=== PATIENT | female | born 1995 | race Caucasian/White ===

== ENCOUNTER 2018-07-25 07:11 | Emergency (ER) | payer OTHER ==
[~2018-07-25] VITALS: Ht 154.9 cm; Wt 84.6 kg
[2018-07-25 07:12] VITALS: BP 122/71
[2018-07-25] MEDS ORDERED: AMOX500C PO (08:53)
== END 2018-07-25 09:00 | disposition home or self-care (01) ==
LOC: M ED 07:11
DX: J02.0 Streptococcal pharyngitis (principal)